=== PATIENT | male | born 1955 | race Caucasian/White ===

== ENCOUNTER → 2017-09-10 | Outpatient (CLI) | payer MEDICARE ==
[~2017-09-10] MED LIST: NO HOME MEDICATIONS; NORCO 325 MG-51 TAB PO; ZOFRAN 4MG T4 MG/TAB PO
== END ==
LOC: MHCPAIN 12:31
DX: G89.29 Other chronic pain (principal); M47.22 Other spondylosis with radiculopathy, cervical region; M48.02 Spinal stenosis, cervical region; Z87.891 Personal history of nicotine dependence
CPT/HCPCS: G0463

== ENCOUNTER 2017-09-25 19:57 | Emergency (ER) | payer MEDICARE ==
[~2017-09-25] VITALS: Ht 182.9 cm; Wt 113.6 kg
[2017-09-25 20:02] VITALS: TEMP 97.7
[2017-09-25 20:24] LABS: BASO # 0.1 (0.0-0.2); BASO % 0.9 % (0.0-2.0); EOS # 0.1 (0.0-0.7); EOS % 1.4 % (0-4.0); GRAN # 4.7 (1.4-6.5); GRAN % 62.1 % (42.2-75.2); HEMATOCRIT 42.4 % (42.0-52.0); HEMOGLOBIN 14.5 g/dl (13.5-18.0); LYMPH # 2.1 (1.2-3.4); LYMPH % 27.7 % (20.0-51.0); MEAN CELL VOLUME 89 fl (80.0-100.0); MEAN CORPUSCULAR HEMOGLOBIN 31 pg (27.0-31.0); MEAN CORPUSCULAR HGB CONC 34 g/dl (33.0-37.0); MEAN PLATELET VOLUME 9.8 fl (7.4-10.4); MONO # 0.6 (0.1-0.6); MONO % 7.5 % (1.7-9.3); PLATELET COUNT 186 K/mm3 (130-400); RED BLOOD COUNT 4.75 M/mm3 (4.20-5.60); WHITE BLOOD COUNT 7.6 K/mm3 (4.8-10.8)
[2017-09-25 20:33] LABS: ADJUSTED CALCIUM 9.1 mg/dL (8.4-10.2); ALBUMIN 5.2 gm/dL (3.5-5.0); BILIRUBIN,TOTAL 0.9 mg/dL (0.0-1.0); CALCIUM 10.1 mg/dL (8.4-10.2); CREATININE, serum 1.07 mg/dL (0.66-1.25); POTASSIUM 4.3 mmol/L (3.4-5.0); TOTAL PROTEIN 8.4 gm/dL (6.4-8.2)
[2017-09-25] MEDS ORDERED: ASPIRIN 81M81 MG/TA2 PO (20:48)
[2017-09-25] MEDS ORDERED: NORCO 325 MG-7.1 TAB PO (20:48)
[2017-09-25] MEDS ORDERED: PRILOSEC 20MG20 MG PO (22:58)
[2017-09-25 23:20] VITALS: BP 144/99; PULSE 68
== END 2017-09-25 23:30 | disposition home or self-care (01) ==
LOC: COL.ER 19:57
PROVIDERS: Emergency Medicine
DX: T18.128A Food in esophagus causing other injury, initial encounter (principal); M54.9 Dorsalgia, unspecified; G89.29 Other chronic pain; Z90.49 Acquired absence of other specified parts of digestive tract; Z79.82 Long term (current) use of aspirin
CPT/HCPCS: J1610; J2250; J2765; J3010; J7030

== ENCOUNTER 2017-10-28 09:45 | Outpatient (RCR) | payer MEDICARE ==
[~2017-10-28 09:45] MED LIST changes: +ASPIRIN 81M81 MG/TA2 PO; +NORCO 325 MG-7.1 TAB PO; +PRILOSEC 20MG20 MG PO
[2017-11-20] MEDS ORDERED: NORCO 325 MG-51 TAB PO (11:14)
[2017-11-20] MEDS ORDERED: PREDNISONE20 MG PO (11:14)
[2017-11-20] MEDS ORDERED: TUSS PO (11:40)
== END 2017-11-20 11:09 | disposition home or self-care (01) ==
LOC: WSPT 09:45
DX: M54.12 Radiculopathy, cervical region (principal)
CPT/HCPCS: G8978-GP; G8979-GP; G8980-GP

== ENCOUNTER 2017-11-20 07:49 | Emergency (ER) | payer MEDICARE ==
[~2017-11-20] VITALS: Ht 182.9 cm; Wt 113.6 kg
[2017-11-20 07:53] VITALS: TEMP 99.3
[2017-11-20 09:11] LABS: INFLUENZA A NEGATIVE; INFLUENZA B NEGATIVE
[2017-11-20] MEDS ORDERED: NORCO 325 MG-51 TAB PO (11:14)
[2017-11-20] MEDS ORDERED: PREDNISONE20 MG PO (11:14)
[2017-11-20] MEDS ORDERED: TUSS PO (11:40)
[2017-11-20 11:45] VITALS: BP 110/79; PULSE 96
== END 2017-11-20 11:45 | disposition home or self-care (01) ==
LOC: COL.ER 07:49
PROVIDERS: Nurse Practitioner
DX: J40 Bronchitis, not specified as acute or chronic (principal); I10 Essential (primary) hypertension; Z79.82 Long term (current) use of aspirin
CPT/HCPCS: J1885; J2270; J7030; J7512

== ENCOUNTER 2018-10-24 14:33 | Observation (INO) | payer MEDICARE ==
[~2018-10-24] VITALS: Ht 182.9 cm; Wt 105.0 kg
[~2018-10-24 14:33] MED LIST changes: +PREDNISONE20 MG PO; +TUSS PO
[2018-10-24] MEDS ORDERED: ZESTRIL 20MG TA20 MG PO (15:09)
[2018-10-24 15:13] LABS: ALANINE AMINOTRANSFERASE 28 U/L (21-72); ALBUMIN 4.2 gm/dL (3.5-5.0); ALKALINE PHOSPHATASE 47 U/L (50-136); ANION GAP 6 mmol/L (7-16); AST,SGOT 30 U/L (15-37); BASO % 0.6 % (0.0-2.0); BILIRUBIN,TOTAL 0.6 mg/dL (0.0-1.0); BLOOD UREA NITROGEN 14 mg/dL (9-20); CALCIUM 9.6 mg/dL (8.4-10.2); CARBON DIOXIDE 27 mmol/L (22-30); CHLORIDE 108 mmol/L (98-107); CREATININE, serum 0.95 mg/dL (0.66-1.25); EOS # 0.1 (0.0-0.7); EOS % 1.2 % (0-4.0); GLUCOSE 105 mg/dL (74-106); GRAN # 3.9 (1.4-6.5); GRAN % 57.2 % (42.2-75.2); HEMOGLOBIN 13.6 g/dl (13.5-18.0); LYMPH # 2.2 (1.2-3.4); LYMPH % 32.1 % (20.0-51.0); MEAN CELL VOLUME 90 fl (80.0-100.0); MEAN CORPUSCULAR HEMOGLOBIN 31 pg (27.0-31.0); MEAN CORPUSCULAR HGB CONC 34 g/dl (33.0-37.0); MEAN PLATELET VOLUME 10.1 fl (7.4-10.4); MONO # 0.6 (0.1-0.6); MONO % 8.6 % (1.7-9.3); PLATELET COUNT 209 K/mm3 (130-400); POTASSIUM 3.9 mmol/L (3.4-5.0); RED BLOOD COUNT 4.46 M/mm3 (4.20-5.60); REDCELL DISTRIBUTION WIDTH-CV 13.2 % (11.5-14.5); SODIUM 142 mmol/L (137-145); TOTAL PROTEIN 7.2 gm/dL (6.4-8.2)
[2018-10-24 15:14] LABS: TROPONIN-I < 0.012 ng/mL (0.000-0.034)
[2018-10-24 15:22] LABS: PROTHROMBIN TIME 11.7 SECONDS (9.7-12.8)
[2018-10-24 15:23] LABS: PARTIAL THROMBOPLASTIN TIME 30.3 SECONDS (26.0-37.0)
[2018-10-24 15:24] LABS: C-REACTIVE PROTEIN < 0.5 mg/dL (0.0-0.9)
[2018-10-24 17:36] VITALS: BP 131/73; PULSE 79; TEMP 98.4
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
[2018-10-24 19:12] VITALS: BP 139/79; PULSE 79; TEMP 98.2
--- NOTE | 2018-10-24 20:00 | NUR ---
Pt resting in bed watching TV, talkative, shift assessments complete, left Pt bed in lowest position, call light in reach.
[2018-10-24 23:08] VITALS: BP 112/69; PULSE 67; TEMP 98.3
[2018-10-25 03:10] VITALS: BP 105/65; PULSE 73; TEMP 97.7
--- NOTE | 2018-10-25 05:43 | NUR ---
Pt slept during the night, he has not shown residual effects weakness or drooping on either side during neuro or stroke checks, VS have been stable, no C/O pain.
[2018-10-25 07:38] VITALS: BP 134/78; PULSE 85; TEMP 98
--- NOTE | 2018-10-25 07:45 | NUR ---
Assessment complete. Pt is AXO X3, states he has pain in his neck rated at a 4/10. Breathing is even and unlabored on room air. Tele on. RH INT flushes easily, remains free of complications, and is CDI. Pt is up walking around his room and he denies further needs. Call light within reach, will continue to monitor.
[2018-10-25 08:13] LABS: BASO # 0.1 (0.0-0.2); EOS # 0.1 (0.0-0.7); EOS % 2.1 % (0-4.0); GRAN # 3.3 (1.4-6.5); GRAN % 54.2 % (42.2-75.2); HEMATOCRIT 42.2 % (42.0-52.0); HEMOGLOBIN 14.3 g/dl (13.5-18.0); LYMPH # 2.2 (1.2-3.4); LYMPH % 36.1 % (20.0-51.0); MEAN CELL VOLUME 89 fl (80.0-100.0); MEAN CORPUSCULAR HEMOGLOBIN 30 pg (27.0-31.0); MEAN CORPUSCULAR HGB CONC 34 g/dl (33.0-37.0); MEAN PLATELET VOLUME 10.5 fl (7.4-10.4); MONO # 0.4 (0.1-0.6); MONO % 6.3 % (1.7-9.3); PLATELET COUNT 206 K/mm3 (130-400); RED BLOOD COUNT 4.72 M/mm3 (4.20-5.60)
[2018-10-25 08:25] LABS: ANION GAP 7 mmol/L (7-16); BLOOD UREA NITROGEN 15 mg/dL (9-20); CALCIUM 9.6 mg/dL (8.4-10.2); CARBON DIOXIDE 27 mmol/L (22-30); CHLORIDE 106 mmol/L (98-107); CHOLESTEROL 225 mg/dL (120-200); CHOLESTEROL RISK RATIO 7.7; CREATININE, serum 1.05 mg/dL (0.66-1.25); GLUCOSE 141 mg/dL (74-106); POTASSIUM 3.9 mmol/L (3.4-5.0); SODIUM 140 mmol/L (137-145)
[2018-10-25 08:35] LABS: TRIGLYCERIDE 691 mg/dL
[2018-10-25 08:36] LABS: TROPONIN-I < 0.012 ng/mL (0.000-0.034)
[2018-10-25 12:50] VITALS: BP 130/79; PULSE 77; TEMP 98.8
[2018-10-25 15:15] VITALS: BP 132/78; PULSE 76; TEMP 98.1
--- NOTE | 2018-10-25 17:37 | NUR ---
Pt has been resting on and off throughout the day. He has had intermittent pain to his neck and shoulders. Pain medication administered on DEC. Pt is sitting up in the bed watching TV at this time and he denies further needs. Call light within reach.
[2018-10-25 19:14] VITALS: BP 128/74; PULSE 75; TEMP 97.9
--- NOTE | 2018-10-25 19:35 | NUR ---
Report given to JERRI Jose.
--- NOTE | 2018-10-25 20:41 | NUR ---
Resting in bed. Assessment complete. Alert and orientated. Lungs clear. 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 Denies pain. Denies needs. Call light in reach.
[2018-10-25 23:19] VITALS: BP 136/83; PULSE 78; TEMP 97.7
--- NOTE | 2018-10-25 23:30 | NUR ---
Up pacing in room. Reports 04/28 neck and back pain. Provided PRN norco. Denies other needs. Call light in reach.
[2018-10-26 03:04] VITALS: BP 114/70; PULSE 71; TEMP 97.6
--- NOTE | 2018-10-26 04:11 | NUR ---
Resting in bed. Call light in reach
--- NOTE | 2018-10-26 06:28 | NUR ---
Uneventful night. Resting in bed this AM. Denied needs. Call light in reach.
[2018-10-26 07:33] VITALS: BP 120/82; PULSE 81; TEMP 98.4
--- NOTE | 2018-10-26 07:45 | NUR ---
Pt assessment complete. Pt is sitting up in the chair upon entry, he is A/O x3. His breathing is even and unlabored on RA. Pt denies SOB. Pain 8/10 to neck and back, PRN pain medication administered. Pt denies N/T. No N/V. Neuro check intact. Pt assisted to the shower. Denies needs. Call light within reach.
--- NOTE | 2018-10-26 10:01 | NUR ---
ZACHARY met with the patient to discuss discharge plan. The patient lives in [place] with his daughter. He reports independence with ADLs and has canes. The patient's PCP is Dr. Burt Umana and he receives his medications at the [facility]. He reports no difficulties obtaining his meds. The patient does not have advanced directives, but he was interested in obtaining the form for DPOA-HC. ZACHARY provided. The patient plans to return home upon discharge. No additional needs at this time.
[2018-10-26 11:14] VITALS: BP 118/75; PULSE 84; TEMP 98.7
[2018-10-26] MEDS ORDERED: LIPITOR 40MG TA40 MG PO (13:13)
[2018-10-26] MEDS ORDERED: SYNTHROID0.075 MG/T PO (13:14)
--- NOTE | 2018-10-26 15:23 | NUR ---
Discharge instructions and paperwork reviewed with patient, all questions answered at this time. IV to Vanessa dc'd, catheter tip intact. Pt walked out of facility at this time.
== END 2018-10-26 15:25 | disposition home or self-care (01) ==
LOC: COL.ER 14:33 → MEDICAL 17:02
PROVIDERS: Emergency Medicine; ADMIT Hospitalist
DX: R20.0 Anesthesia of skin (principal); I10 Essential (primary) hypertension; F17.210 Nicotine dependence, cigarettes, uncomplicated; G89.29 Other chronic pain; E03.9 Hypothyroidism, unspecified; Z90.49 Acquired absence of other specified parts of digestive tract; Z79.82 Long term (current) use of aspirin; Z86.73 Personal history of transient ischemic attack (TIA), and cerebral infarction without residual deficits
CPT/HCPCS: A9585; G0378; J1644

== ENCOUNTER 2019-05-06 01:25 | Emergency (ER) | payer MEDICARE ==
[~2019-05-06] VITALS: Ht 182.9 cm; Wt 104.1 kg
[~2019-05-06 01:25] MED LIST changes: +LIPITOR 40MG TA40 MG PO; +SYNTHROID0.075 MG/T PO; +ZESTRIL 20MG TA20 MG PO
[2019-05-06 01:32] VITALS: BP 130/81; TEMP 97.7
[2019-05-06] MEDS ORDERED: ZANTAC 7575 MG PO (01:37)
[2019-05-06 02:22] VITALS: PULSE 97
== END 2019-05-06 02:22 | disposition home or self-care (01) ==
LOC: COL.ER 01:25
DX: S90.31XA Contusion of right foot, initial encounter (principal); E03.9 Hypothyroidism, unspecified; Z79.82 Long term (current) use of aspirin; Z86.73 Personal history of transient ischemic attack (TIA), and cerebral infarction without residual deficits; Z98.890 Other specified postprocedural states; Y04.0XXA Assault by unarmed brawl or fight, initial encounter